=== PATIENT | female | born 1995 | race African-American/Black ===

== ENCOUNTER 2017-08-28 05:45 | Emergency (ER) | payer OTHER ==
[~2017-08-28] VITALS: Ht 165.1 cm; Wt 46.0 kg
[~2017-08-28 05:45] MED LIST: NULE0.12 SL
[2017-08-28 05:47] VITALS: BP 115/75; PULSE 68; RESP 16; TEMP 97.9; O2SAT 100
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
[2017-08-28] MEDS ORDERED: KETOROLAC TROMETHAMINE 30 MG/ML (IVP) VIAL IV PUSH ONE (06:15)
[2017-08-28] MEDS ORDERED: SODIUM CHLORIDE 0.9% FLUSH 10 ML FLUSH IVF PRN (06:15)
[2017-08-28 07:10] LABS: AUTOMATED NEUTROPHIL # 3.5 TH/MM3 (1.8-7.7); BASOPHIL % 0.5 % (0.0-2.0); EOSINOPHIL % 0.4 % (0.0-4.0); HEMATOCRIT 37.9 % (35.0-46.0); HEMO FLAGS DIFF FINAL; LYMPH % 16.5 % (9.0-44.0); LYMPHOCYTE # 0.7 TH/MM3 (1.0-4.8); MEAN CELL VOLUME 83.6 FL (80.0-100.0); MEAN CORPUSCULAR HEMOGLOBIN 27.6 PG (27.0-34.0); NEUT % 76.6 % (16.0-70.0); PLATELET COUNT 181 TH/MM3 (150-450); RED BLOOD COUNT 4.54 MIL/MM3 (4.00-5.30); RED CELL DISTRIBUTION WIDTH 13.2 % (11.6-17.2); WHITE BLOOD COUNT 4.5 TH/MM3 (4.0-11.0)
[2017-08-28 07:25] LABS: BACTERIA, URINE OCC /hpf; BLOOD, URINE MOD (NEG); COMMENT (UR) CULT NOT INDICATED; CULTURE IF INDICATED CULT NOT INDICATED; GLUCOSE,URINE NEG (NEG); KETONE, URINE NEG (NEG); MUCUS URINE FEW /lpf (OCC); NITRITE,URINE NEG (NEG); PH, URINE 6.5 (5.0-8.5); SQUAMOUS EPITHELIAL CELL URINE 3 /hpf (0-5); TRANSITIONAL EPI CELLS, URINE <1 /hpf; URINE COLOR YELLOW (YELLW/STRAW)
[2017-08-28 07:32] LABS: ALKALINE PHOSPHATASE 54 U/L (45-117); ALT (GPT) 18 U/L (10-53); BETA HCG QUANT LESS THAN 1 MIU/ML (0-5); TOTAL BILIRUBIN ADULT 0.3 MG/DL (0.2-1.0)
[2017-08-28 07:33] LABS: ANION GAP 8 MEQ/L (5-15); BICARBONATE 21.9 MEQ/L (21.0-32.0); BLOOD UREA NITROGEN 9 MG/DL (7-18); CHLORIDE 109 MEQ/L (98-107); GLOMERULAR FILTRATION RATE 111 ML/MIN (>89); SODIUM (NA) 139 MEQ/L (136-145)
[2017-08-28 07:35] LABS: AST (GOT) 20 U/L (15-37); POTASSIUM 3.9 MEQ/L (3.5-5.1)
--- NOTE | 2017-08-28 07:46 | PD ---
Physical Exam Date Seen by Provider: Aug 28, 2017 Time Seen by Provider: 07:00 Narrative She was signed out to me by Dr. Osborn at 7 AM during change of shift. Please see her note for H&P. The patient was awaiting an ultrasound. Patient has a history of chronic pelvic issues. Ultrasound of the pelvis was pending to rule out torsion. Data Data Last Documented VS Vital Signs Date Time Temp Pulse Resp B/P (MAP) Pulse Ox O2 Delivery O2 Flow Rate FiO2 08/28/17 09:38 89 18 125/83 (97) 97 Room Air 08/28/17 05:47 97.9 Orders Orders Beta Hcg (Quant/Titer) (08/28/17 06:07) Complete Blood Count With Diff (08/28/17 06:07) Comprehensive Metabolic Panel (08/28/17 06:07) Gc And Chlamydia Pcr (08/28/17 06:07) Wet Prep Profile (08/28/17 06:07) Urinalysis - C+S If Indicated (08/28/17 06:07) Iv Access Insert/Monitor (08/28/17 06:07) Ecg Monitoring (08/28/17 06:07) Sodium Chloride 0.9% Flush (Ns Flush) (08/28/17 06:15) Ed Urine Pregnancytest Poc (08/28/17 06:07) Ketorolac Inj (Toradol Inj) (08/28/17 06:15) Us Pelvis Comp W Dop Transvag (08/28/17 06:07) Labs Laboratory Tests Test 08/28/17 06:23 08/28/17 06:28 08/28/17 06:40 Clue Cells (Wet Prep) PRESENT Vaginal Trichomonas (Wet Prep) NONE SEEN Vaginal Yeast (Wet Prep) NONE SEEN Chlamydia trachomatis DNA (PCR) DETECTED Neisseria gonorrhoeae DNA (PCR) NOT DETECTED Urine Color YELLOW Urine Turbidity CLEAR Urine pH 6.5 Urine Specific [place] 1.023 Urine Protein NEG mg/dL Urine Glucose (UA) NEG mg/dL Urine Ketones NEG mg/dL Urine Occult Blood MOD Urine Nitrite NEG Urine Bilirubin NEG Urine Urobilinogen LESS THAN 2.0 MG/DL Urine Leukocyte Esterase SMALL Urine RBC 32 /hpf Urine WBC 3 /hpf Urine Squamous Epithelial Cells 3 /hpf Urine Transitional Epithelial Cells <1 /hpf Urine Bacteria OCC /hpf Urine Mucus FEW /lpf Microscopic Urinalysis Comment CULT NOT INDICATED White Blood Count 4.5 TH/MM3 Red Blood Count 4.54 MIL/MM3 Hemoglobin 12.5 GM/DL Hematocrit 37.9 % Mean Corpuscular Volume 83.6 FL Mean Corpuscular Hemoglobin 27.6 PG Mean Corpuscular Hemoglobin Concent 33.0 % Red Cell Distribution Width 13.2 % Platelet Count 181 TH/MM3 Mean Platelet Volume 8.8 FL Neutrophils (%) (Auto) 76.6 % Lymphocytes (%) (Auto) 16.5 % Monocytes (%) (Auto) 6.0 % Eosinophils (%) (Auto) 0.4 % Basophils (%) (Auto) 0.5 % Neutrophils # (Auto) 3.5 TH/MM3 Lymphocytes # (Auto) 0.7 TH/MM3 Monocytes # (Auto) 0.3 TH/MM3 Eosinophils # (Auto) 0.0 TH/MM3 Basophils # (Auto) 0.0 TH/MM3 CBC Comment DIFF FINAL Differential Comment Blood Urea Nitrogen 9 MG/DL Creatinine 0.78 MG/DL Random Glucose 90 MG/DL Total Protein 8.2 GM/DL Albumin 4.0 GM/DL Calcium Level 8.8 MG/DL Alkaline Phosphatase 54 U/L Aspartate Amino Transf (AST/SGOT) 20 U/L Alanine Aminotransferase (ALT/SGPT) 18 U/L Total Bilirubin 0.3 MG/DL Sodium Level 139 MEQ/L Potassium Level 3.9 MEQ/L Chloride Level 109 MEQ/L Carbon Dioxide Level 21.9 MEQ/L Anion Gap 8 MEQ/L Estimat Glomerular Filtration Rate 111 ML/MIN Human Chorionic Gonadotropin, Quant LESS THAN 1 MIU/ML MDM Medical Record Reviewed: Yes Supervised Visit with STEFANIE: No Narrative Course 0.3-year-old female presents with pelvic pain. The patient presents earlier and was seen by Dr. Osborn prior to my arrival. She signed out to me at change of shift. The patient's ultrasound shows trace amount of free fluid in the pelvis without any other abnormalities. Serology comes back for positive Chlamydia and wet prep shows clue cells. She'll be treated with azithromycin 1 g by mouth times one dose. She'll be given a prescription for metronidazole twice daily 7 days. She also be given a prescription for ketorolac. She'll follow up with her primary care physician or [facility] physician as needed. Diagnosis Primary Impression: Chlamydia infection Additional Impressions: Bacterial vaginosis pelvic pain. Med/Other Pt SpecificInfo: Prescription(s) given Scripts Ketorolac (Ketorolac) 10 Mg Tab 10 MG PO TID for Pain Management for 5 Days, TAB 0 Refills Prov: Colt Ga MD 08/28/17 Disposition: 01 DISCHARGE HOME Condition: Stable Colt Ga MD Aug 28, 2017 07:46
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
[2017-08-28 09:07] LABS: CHLAMYDIA PCR DETECTED (NOT DETECT); NEISSERIA PCR NOT DETECTED (NOT DETECT)
[2017-08-28 09:38] VITALS: BP 125/83; PULSE 89; RESP 18; O2SAT 97
[2017-08-28] MEDS ORDERED: KETO10 PO (09:40)
[2017-08-28] MEDS ORDERED: METR500T10 PO (09:45)
[2017-08-28] MEDS ORDERED: AZITHROMYCIN PWD FOR SUSP 1 GM PACKET PO ONE (09:45)
== END 2017-08-28 10:40 | disposition home or self-care (01) ==
LOC: NEPC 05:45
DX: N76.0 Acute vaginitis (principal); B96.89 Other specified bacterial agents as the cause of diseases classified elsewhere; A74.9 Chlamydial infection, unspecified; Z72.0 Tobacco use; Z88.6 Allergy status to analgesic agent
CPT/HCPCS: 76830; 76856; 80053; 81001; 84702; 84703; 85025; 87210; 87491; 87591; 93975; 96374; 99285; J1885

== ENCOUNTER 2017-11-16 08:44 | Emergency (ER) | payer OTHER ==
[~2017-11-16] VITALS: Ht 165.1 cm; Wt 50.0 kg
[~2017-11-16 08:44] MED LIST changes: +AZIT500T2 PO; +KETO10 PO; +METR0.7512 VAGINAL; -NULE0.12 SL
[2017-11-16 08:46] VITALS: BP 122/91; PULSE 72; RESP 18; TEMP 97.3; O2SAT 100
[2017-11-16] MEDS ORDERED: oxyCODONE/ACETAMINOPHEN 5 MG/325 MG TAB PO ONE (09:00)
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
== END 2017-11-16 11:47 | disposition home or self-care (01) ==
LOC: NEPE 08:44
DX: S30.810A Abrasion of lower back and pelvis, initial encounter (principal); S09.90XA Unspecified injury of head, initial encounter; V87.8XXA Person injured in other specified noncollision transport accidents involving motor vehicle (traffic), initial encounter
CPT/HCPCS: 70450; 72125; 72131; 72170; 84703; 99285

== ENCOUNTER 2018-02-28 18:09 | Emergency (ER) | payer OTHER ==
[~2018-02-28] VITALS: Ht 165.1 cm; Wt 47.5 kg
[~2018-02-28 18:09] MED LIST changes: -AZIT500T2 PO; -METR0.7512 VAGINAL
[2018-02-28] MEDS ORDERED: IOHEXOL 350 MG/ML 10 ML VIAL (for RAD DIAG) IVCONTRAST ONE (18:10)
[2018-02-28 18:22] VITALS: BP 86/53; PULSE 79; RESP 18; TEMP 98.5; O2SAT 100
[2018-02-28] MEDS ORDERED: SODIUM CHLORIDE 0.9% FLUSH 10 ML FLUSH IV FLUSH PRN (18:45)
[2018-02-28] MEDS ORDERED: SODIUM CHLOR 0.9% 1000 ML INJ 1,000 ML IV SCH (18:45)
[2018-02-28] MEDS ORDERED: ONDANSETRON HCL 4 MG/2 ML VIAL IVP ONE (18:45)
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
[2018-02-28 19:20] VITALS: BP 92/54; PULSE 66; RESP 16; O2SAT 100
[2018-02-28 20:39] LABS: AUTOMATED NEUTROPHIL # 1.9 TH/MM3 (1.8-7.7); BASOPHIL % 0.6 % (0.0-2.0); EOSINOPHIL # 0.1 TH/MM3 (0-0.4); EOSINOPHIL % 1.9 % (0.0-4.0); HEMATOCRIT 33.6 % (35.0-46.0); LYMPH % 32.1 % (9.0-44.0); LYMPHOCYTE # 1.1 TH/MM3 (1.0-4.8); MEAN CELL VOLUME 83.1 FL (80.0-100.0); MEAN CORPUSCULAR HEMOGLOBIN 27.3 PG (27.0-34.0); MEAN CORPUSCULAR HGB CONC 32.8 % (32.0-36.0); MONOCYTE # 0.4 TH/MM3 (0-0.9); NEUT % 55.4 % (16.0-70.0); PLATELET COUNT 168 TH/MM3 (150-450); RED BLOOD COUNT 4.05 MIL/MM3 (4.00-5.30); RED CELL DISTRIBUTION WIDTH 13.6 % (11.6-17.2); WHITE BLOOD COUNT 3.5 TH/MM3 (4.0-11.0)
[2018-02-28 20:56] LABS: ALBUMIN 3.6 GM/DL (3.4-5.0); ALT (GPT) 16 U/L (10-53); BICARBONATE 30.1 MEQ/L (21.0-32.0); CALCIUM 8.2 MG/DL (8.5-10.1); CHLORIDE 107 MEQ/L (98-107); CREATININE 1.02 MG/DL (0.50-1.00); GLOMERULAR FILTRATION RATE 81 ML/MIN (>89); GLUCOSE,RANDOM 83 MG/DL (74-106); SODIUM (NA) 144 MEQ/L (136-145)
[2018-02-28 20:59] LABS: BACTERIA, URINE RARE /hpf; BILIRUBIN, URINE NEG (NEG); BLOOD, URINE LARGE (NEG); GLUCOSE,URINE NEG (NEG); KETONE, URINE NEG (NEG); MUCUS URINE FEW /lpf (OCC); NITRITE,URINE NEG (NEG); PH, URINE 6.5 (5.0-8.5); SQUAMOUS EPITHELIAL CELL URINE 7 /hpf (0-5); URINE COLOR YELLOW (YELLW/STRAW); URINE LEUKOCYTE ESTERASE TRACE (NEG)
[2018-02-28 21:07] VITALS: BP 101/71; PULSE 60; RESP 16; O2SAT 99
[2018-02-28 21:08] LABS: ALKALINE PHOSPHATASE 58 U/L (45-117); AST (GOT) 16 U/L (15-37); BLOOD UREA NITROGEN 13 MG/DL (7-18); TOTAL BILIRUBIN ADULT 0.2 MG/DL (0.2-1.0); TOTAL PROTEIN 7.1 GM/DL (6.4-8.2)
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
[2018-02-28] MEDS ORDERED: MAGNSOL2 PO (22:10)
== END 2018-02-28 22:26 | disposition home or self-care (01) ==
LOC: NEPC 18:09
DX: R10.33 Periumbilical pain (principal); K59.00 Constipation, unspecified
CPT/HCPCS: 74177; 80053; 81001; 83690; 84703; 85025; 87210; 87491; 87591; 96374; 99285; J2405; J7030; Q9967

== ENCOUNTER 2018-03-22 02:04 | Emergency (ER) | payer OTHER ==
[~2018-03-22] VITALS: Ht 165.1 cm; Wt 46.0 kg
[~2018-03-22 02:04] MED LIST changes: -KETO10 PO; +MAGNSOL2 PO
[2018-03-22 02:05] VITALS: BP 94/66; PULSE 88; RESP 14; TEMP 98; O2SAT 100
[2018-03-22] MEDS ORDERED: BUTORPHANOL TARTRATE INJ 2 MG/ML VIAL IM ONE (03:00)
[2018-03-22] MEDS ORDERED: ONDANSETRON ODT 4 MG TAB PO ONE (03:00)
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
[2018-03-22 03:46] LABS: AMORPHOUS SEDIMENT, URINE RARE; BILIRUBIN, URINE NEG (NEG); BLOOD, URINE MOD (NEG); GLUCOSE,URINE NEG (NEG); KETONE, URINE 40 mg/dL (NEG); MUCUS URINE MANY /lpf (OCC); NITRITE,URINE NEG (NEG); PH, URINE 6.5 (5.0-8.5); RENAL EPITHELIAL CELLS <1 /hpf; SQUAMOUS EPITHELIAL CELL URINE 4 /hpf (0-5); URINE COLOR YELLOW (YELLW/STRAW); URINE LEUKOCYTE ESTERASE MOD (NEG)
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
[2018-03-22] MEDS ORDERED: MACR100C2 PO (04:44)
[2018-03-22] MEDS ORDERED: TRAM50 PO (04:45)
== END 2018-03-22 05:15 | disposition home or self-care (01) ==
LOC: NEPE 02:04
DX: N39.0 Urinary tract infection, site not specified (principal); F12.90 Cannabis use, unspecified, uncomplicated; Z72.0 Tobacco use
CPT/HCPCS: 76856; 80307; 81001; 86403; 87077; 87086; 87186; 93975; 96372; 99284; J0595

== ENCOUNTER 2018-04-17 17:03 | Emergency (ER) | payer OTHER ==
[~2018-04-17] VITALS: Ht 154.9 cm; Wt 50.0 kg
[~2018-04-17 17:03] MED LIST changes: +MACR100C2 PO; +TRAM50 PO
[2018-04-17 17:10] VITALS: BP 101/56; PULSE 93; RESP 16; TEMP 98.2; O2SAT 96
[2018-04-17] MEDS ORDERED: PROCHCT RECTAL (18:27)
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
== END 2018-04-17 19:12 | disposition home or self-care (01) ==
LOC: NEPD 17:03
DX: K64.9 Unspecified hemorrhoids (principal)
CPT/HCPCS: 99283